=== PATIENT | female | born 1990 | race Caucasian/White ===

== ENCOUNTER 2020-11-18 14:04 | Emergency (ER) | payer OTHER, SELFPAY ==
[2020-11-18 14:34] VITALS: BP 141/81; PULSE 97; RESP 18; TEMP 36.4; O2SAT 98; BMI 40.7
--- NOTE | 2020-11-18 14:37 | XR_ITS ---
EXAMINATION: XR ELBOW, RIGHT CLINICAL INFORMATION: Dog bite. Painful range of motion. COMPARISON: None TECHNIQUE: AP, lateral, and oblique views of the right elbow. FINDINGS: The bones and soft tissues are normal. No fracture or joint effusion. Alignment is anatomic. Joint spaces are maintained. No soft tissue gas or radiopaque foreign body seen. XR/XR elbow RT min 3V IMPRESSION: Unremarkable right elbow exam.
--- NOTE | 2020-11-18 14:39 | ED.ANIMALBIT ---
HPI - Animal Bite General Chief Complaint: Animal Bite Stated Complaint: elbow lac Time Seen by Provider: 11/18/20 14:14 Source: patient Mode of arrival: ambulatory Limitations: no limitations History of Present Illness HPI narrative: 30 y/o female with history of obesity, asthma, old hip fracture currently on predispose who presents to the ED 18 hours after a Rottwe[place] dog bit her right elbow. She states she felt immediate pain and bleeding. She was able to stop the bleeding so did not come to the ER for evaluation. Today the bleeding recurred and she had worsening elbow pain and difficulty lifting due to the pain. Last tetanus 2007. No fever, chills, drainage of pus. Can move her elbow but it hurt. Dog is up to date on his shots, it is her friend's dog. complaint: animal bite Onset (ago): day(s) (1) Animal: dog Description of animal: household pet Mechanism: bite Location - Extremities: right: elbow (posterior ) Pain description: sharp and intermittent Severity scale (1-10): 6 Context: playing with animal Associated symptoms: bleeding Treatments prior to arrival: wound dressing(s) Related Data Patient tetanus UTD: No Previous Rx's Medication Instructions Recorded amoxicillin-pot clavulanate 1 tab PO Q12H #20 tab 11/18/20 [Augmentin] Allergies Allergy/AdvReac Type Severity Reaction Status Date / Time animal dander [ANIMAL DANDER] Allergy Unknown ITCHY Unverified 07/18/20 18:09 EYES, RUNNY NOSE cat pelt standardized Allergy Unknown Dry Eye Verified 11/18/20 14:33 allergenic ex Dog Fennel Allergy Unknown Shortness Uncoded 11/18/20 14:33 of Breath DUST Allergy Unknown UNKNOWN Uncoded 07/18/20 18:09 Dust Mite Mixed Allergen Ext Allergy Unknown Shortness Uncoded 11/18/20 14:33 of Breath Review of Systems Review of Systems: Constitutional: No Fever, No Chills ENT/Mouth: No Swallowing Difficulty Cardiovascular: No Chest Pain, No SOB Respiratory: No Cough, No Sputum, No Wheezing, No dyspnea Gastrointestinal: No Nausea, No Vomiting, No Diarrhea, No abdominal Pain Genitourinary: No Dysuria, No Urinary Frequency, No Hematuria Musculoskeletal: + joint pain, + Myalgias Skin: + Skin Lesions, + rash Neuro: No Weakness, No Numbness, No Dizziness, No Headache Heme/Lymph: + Bruising, No Lymphadenopathy PMFSH Past Medical History Medical History (Updated 11/18/20 @ 14:47 by FÁTIMA Green) Asthma Depression Social History Social History Advance Directives: No Advance Directives Information Provided: No Physical Exam Vital Signs: Vital Signs: Last Vital Signs Temp 97.6 F 11/18/20 14:34 Pulse 97 11/18/20 14:34 Resp 18 11/18/20 14:34 BP 141/81 H 11/18/20 14:34 Pulse Ox 98 11/18/20 14:34 Body Mass Index 40.7 Appearance: Alert. Oriented X3. No acute distress. HEENT: normal inspection CVS: Normal heart rate and rhythm. Pulses normal. Respiratory: No respiratory distress. Skin: Skin warm and dry. Normal skin color. Normal skin turgor. No rashes. Extremities: right elbow with 2cm wound with small flap, no active bleeding. ecchymosis surrouning the wound. no pus draining. no surrounding erythema. full elbow ROM with pain upon full flexion Neuro: Oriented X 3. No motor deficit. No sensory deficit. Course Course Course Narrative: 30 y/o female presenting with delayed presentation of dog bite. No role for suturing at this time. Wound has been cleaned and sterile dressing applied. Will get XR given pain on ROM and size of dog, low suspicion for bony involvement. Will give tetanus and prescribe abx. Reevaluation(s) Reevaluation #1: XR unremarkable. Stable for discharge. Discharge Plan Discharge Clinical Impression: Dog bite Qualifiers: Encounter type: initial encounter Qualified Code(s): W54.0XXA - Bitten by dog, initial encounter Patient Disposition: Home, Self-Care Instructions: Animal Bite (ED) Additional Instructions: Your x-ray today was unremarkable. No indication for stitches at this time. Keep wound with clean and dry. You may wash briefly with soap and water then pat dry. Use Neosporin or another triple antibiotic ointment 2-3 times per day. Change the dressing daily. Take the antibiotics as prescribed. Take Motrin and/or Tylenol as needed for pain. You were given a tetanus shot today. It is good for 5 years. Follow up with your doctor as schedule. Prescriptions: New amoxicillin-pot clavulanate [Augmentin] 875-125 mg tablet 1 tab PO Q12H Qty: 20 RF: 0 Stand Alone Forms: Work/School Release
== END 2020-11-18 15:10 | disposition home or self-care (01) ==
LOC: HO.ED 14:48
PROVIDERS: Emergency Provider Emergency Medicine; PCP Internal Medicine
DX: S51.051A Open bite, right elbow, initial encounter (principal); W54.0XXA Bitten by dog, initial encounter; Y93.9 Activity, unspecified; Y92.019 Unspecified place in single-family (private) house as the place of occurrence of the external cause; Y99.9 Unspecified external cause status
CPT/HCPCS: 73080; 90471; 90715; 99283; 99284

== ENCOUNTER 2022-10-22 12:44 | Outpatient (REF) | payer OTHER, SELFPAY ==
--- NOTE | 2022-10-22 14:53 | MHC.AU.HA1 ---
Hearing Aid Evaluation Date of Visit: 10/22/22 Historical Information: Description of Hearing: Right- Normal hearing, Left- Profound hearing loss Summary: Patient received medical clearance for a CROS system from ENT, Dr. Chavez. 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 She has never worn a hearing aid or CROS system, but is very interested in trying a CROS. She reports that it is frustrating to always have to turn her better ear towards people who are talking, and she still often misses what people are saying if they are on her left side. Options were discussed. She would like rechargeable for ease of use. Hearing Aid Prescription: Based on the individual?s shared listening needs, communication environments, dexterity, desire for connectivity, and personal preferences, the following prescription for amplification has been made: Right ear: Make, Model, Color: Oticon More 2 miniRITE R Battery Size: Rechargeable Inside Technical Sales Representative/Slim Tube: Size 2- 60 gain Type of Earmold/Dome/CShell/SlimTip: Open Dome Left ear: Left ear prescription to be same as Right Hearing Aid above: David Model, Color: Oticon CROS PX miniRITE R Battery Size: Rechargeable Inside Technical Sales Representative/Slim Tube: Size 2 Type of Earmold/Dome/CShell/SlimTip: Open Dome Action Taken/Action Needed: Hearing Instrument Fitting to be scheduled when materials arrive Primary Diagnosis: H90.42 SNHL Unilateral Left Side, W/Unrestricted Contralateral Hearing Signature: Provider: Afshan Carter, [facility]
== END 2022-10-22 12:45 | disposition home or self-care (01) ==
LOC: HO.HAP 12:44
PROVIDERS: Visit Provider Internal Medicine
DX: Z46.1 Encounter for fitting and adjustment of hearing aid (principal); H90.42 Sensorineural hearing loss, unilateral, left ear, with unrestricted hearing on the contralateral side
CPT/HCPCS: 92591

== ENCOUNTER 2022-11-20 15:13 | Outpatient (REF) | payer OTHER, SELFPAY | END 2022-11-20 15:14 | disposition home or self-care (01) | LOC: HO.HAP 15:13 | PROVIDERS: Visit Provider Internal Medicine | DX: Z13.89 Encounter for screening for other disorder (principal) ==

== ENCOUNTER 2022-11-27 09:59 | Outpatient (REF) | payer OTHER, SELFPAY ==
--- NOTE | 2022-11-27 09:56 | MHC.AU.NMH ---
Hearing Aid Delivery Receipt: Third Libertarian Payor [facility] type [facility] Other: Date of Fitting: End of Adjustment Period: 30 days from date of fitting Filter Washer: Right Ear: Left Ear: Make, Model, Serial Number and Color: Oticon More 2 miniRITE R Prisca Black Serial #[id number] Make, Model, Serial Number and Color: Oticon CROS PX miniRITE R Prisca Black Serial #[id number] Director Employee Safety And Health/Slim Tube: Size 2- 60 gain Director Employee Safety And Health/Slim Tube: Size 2 Earmold/Dome/CShell/SlimTip: Open Dome Earmold/Dome/CShell/SlimTip: Open Dome Type of Wax Guard: Type of Wax Guard: Battery Size: Rechargeable Battery Size: Rechargeable President Repair Warranty: 11/21/2025 President Repair Warranty: 11/21/2025 President Loss and Damage Warranty: 11/21/2025 President Loss and Damage Warranty: 11/21/2025 [facility] Service Agreement ends one year from date of fitting on? [facility] Service Agreement ends one year from date of fitting on Accessories/Assistive Technology: Following the expiration of [facility]?s service agreement, charges for items and services listed above are billed at the usual and customary rate. *If coverage by third libertarian payor exists, medically necessary modifications, repairs, etc. will be billed to said third libertarian payor. If there is no third libertarian payor eligibility beyond the service agreement or fertilizing machine operator warranty periods, items will be billed per usual and customary rates and payment is expected at the time of service. Hearing aids that are lost or damaged beyond repair cannot be returned for credit, and the [facility] nurse is liable for the full purchase sofia. My signature below acknowledges that I have read and understand this hearing aid contract and have received the goods and services out lined above. ?Date? Home Address: ? PATIENT STICKER ? This hearing aid will not restore normal hearing nor will it prevent further hearing loss. The sale of a hearing aid is restricted to those individuals who have obtained a medical evaluation from a licensed physician or user interface artist. A fully informed adult whose quaker or personal beliefs preclude consultation with a physician may waive the requirement of a medical evaluation. The exercise of such a waiver is not in your best health interest and its use is strongly discouraged. It is also required that a person under the age of eighteen years obtain an evaluation by an life sciences manager in addition to the medical evaluation before a hearing aid can be sold to such person. Alonso Adorno,Title XV,Chapter 93:74
== END 2022-11-27 10:00 | disposition home or self-care (01) ==
LOC: HO.HAP 09:59
PROVIDERS: Visit Provider Internal Medicine
DX: Z46.1 Encounter for fitting and adjustment of hearing aid (principal); H90.42 Sensorineural hearing loss, unilateral, left ear, with unrestricted hearing on the contralateral side
CPT/HCPCS: V5011; V5020; V5221; V5240

== ENCOUNTER 2023-09-03 22:49 | Emergency (ER) | payer OTHER, SELFPAY ==
--- NOTE | ~2023-09-03 | XR_ITS ---
X-RAY RIGHT ANKLE AND RIGHT FOOT CLINICAL HISTORY: Fall. COMPARISON: No relevant prior studies are available for comparison. TECHNIQUE: 2 views of the right ankle and 3 views of the right foot. FINDINGS: Right ankle: Soft tissue swelling that is more prominent adjacent to the lateral malleolus. No osseous fractures or malalignment. No unexpected radiopaque foreign bodies. Right foot: No acute fracture or malalignment. Nonspecific diffuse soft tissue swelling. No unexpected radiopaque foreign bodies. XR/XR foot RT 2V IMPRESSION: Diffuse soft tissue swelling more noticeable adjacent to the lateral malleolus. No acute fracture or subluxation.
--- NOTE | ~2023-09-03 | XR_ITS ---
X-RAY RIGHT ANKLE AND RIGHT FOOT CLINICAL HISTORY: Fall. COMPARISON: No relevant prior studies are available for comparison. TECHNIQUE: 2 views of the right ankle and 3 views of the right foot. FINDINGS: Right ankle: Soft tissue swelling that is more prominent adjacent to the lateral malleolus. No osseous fractures or malalignment. No unexpected radiopaque foreign bodies. Right foot: No acute fracture or malalignment. Nonspecific diffuse soft tissue swelling. No unexpected radiopaque foreign bodies. XR/XR ankle RT 2V IMPRESSION: Diffuse soft tissue swelling more noticeable adjacent to the lateral malleolus. No acute fracture or subluxation.
[2023-09-03 22:53] VITALS: BP 112/96; PULSE 97; RESP 18; TEMP 37.1; O2SAT 97; BMI 46.6
--- NOTE | 2023-09-04 00:36 | ED_ITS ---
HPI - General Adult General Chief complaint: Fall Stated complaint: ankle swollen w/ no feeling Time Seen by Provider: 09/04/23 00:36 Source: patient Mode of arrival: ambulatory Limitations: no limitations History of Present Illness HPI narrative: Patient is a 33 year old assigned female at with no reported medical history presenting to the emergency department today with right ankle pain. Patient states that she fell down approximately 3 or 4 steps and now her right ankle hurts. Patient denies any loss of consciousness, dizziness, lightheadedness, abdominal pain, nausea, vomiting, fever, chills, blurry vision, double vision, loss of vision, chest pain, difficulty breathing, shortness of breath, back pain, night sweats, pain with urination, increased urinary frequency, increased urinary urgency, blood in her urine or stool, syncope or a near syncopal episode, bowel incontinence, bladder incontinence, bowel retention, bladder retention, or any other complaints at this time. Onset (ago): minute(s) Location: right and lower extremity Radiation: non-radiation Severity: mild Severity scale (1-10): 4 Quality: aching and dull Pain Consistency: constant Relieving factors: none Exacerbating factors: none Associated symptoms: denies other symptoms Treatments prior to arrival: none Related Data Previous Rx's Medication Instructions Recorded amoxicillin 875 mg-potassium 1 tab PO Q12H #20 tabs 11/18/20 clavulanate 125 mg tablet (Augmentin) Allergies Allergy/AdvReac Type Severity Reaction Status Date / Time animal dander [ANIMAL DANDER] Allergy Unknown ITCHY Unverified 07/18/20 18:09 EYES, RUNNY NOSE cat pelt standardized Allergy Unknown Dry Eye Verified 11/18/20 14:33 allergenic ex Dog Fennel Allergy Unknown Shortness Uncoded 11/18/20 14:33 of Breath DUST Allergy Unknown UNKNOWN Uncoded 07/18/20 18:09 Dust Mite Mixed Allergen Ext Allergy Unknown Shortness Uncoded 11/18/20 14:33 of Breath Review of Systems Constitutional: Constitutional: Reports no additional constitutional complaints, Denies chills, Denies fever(s) and Denies night sweats Eyes: Eyes: Reports no additional eye complaints, Denies blurry vision, Denies change in vision, Denies diplopia, Denies eye discharge, Denies loss of vision and Denies eye pain ENT: Denies dizziness Cardiovascular: Cardiovascular: Reports no additional cardiovascular complaints, Denies chest pain, Denies lightheadedness, Denies Loss of Consciousness and Denies dyspnea Respiratory: Respiratory: Reports no additional respiratory complaints and Den ies dyspnea Gastrointestinal: Gastrointestinal: Reports no additional gastrointestinal complaints, Denies abdominal pain, Denies melena, Denies hematochezia, Denies change in bowel habits and Denies change in stool character Genitourinary: Genitourinary: Denies hematuria, Denies urinary frequency, Denies dysuria, Denies urinary incontinence, Denies urinary hesitancy and Denies urinary urgency Musculoskeletal: Musculoskeletal: Reports no additional musculoskeletal complaints, Denies numbness and Denies tingling Comments: right ankle pain Neurologic: Denies dizziness, Denies loss of vision, Denies numbness and Denies tingling Psychiatric: Psychiatric: Reports no additional psychiatric complaints Endocrine: Endocrine: Reports no additional endocrine complaints Hematologic/Lymphatic: Hematologic/Lymphatic: Reports no additional hematologic/lymphatic complaints Allergic/Immunologic: Allergic/Immunologic: Reports no additional al lergic/immunologic complaints PMFSH Past Medical History Attestation statement: The following information was validated with the patient. Source: old records reviewed and nursing notes reviewed Medical History Depression Asthma Social History Social History Smoked in Last 30 Days: Yes Use of substances other than those prescribed or required for medical reasons: No Advance Directives: No Advance Directives Information Provided: Yes Patient : No Physical Exam ED Vital Signs: Vital Signs - 24 hr 09/03/23 22:53 Temperature 98.7 F Pulse Rate 97 Respiratory Rate 18 Blood Pressure 112/96 H Pulse Oximetry 97 Oxygen Delivery Method Room Air BMI result Body Mass Index 46.6 Const General: cooperative, no acute distress, alert and awake Nutritional Appearance: well nourished Orientation/consciousness: patient oriented x3 Limitations: no limitations HENMT Head: Yes normal to inspection and Yes atraumatic Ears: hearing grossly normal bilaterally and external ears normal General nose exam: Normal external nose present, no nasal discharge noted and no epistaxis Face and sinus: Yes normal facial exam, No abrasion and No laceration Mouth: Normal oral and palatal mucosa present, no drooling and no muffled voice Eyes General: appearance normal, both eyes and all related structures Periorbital: periorbital findings normal Eyelids: Yes eyelids normal Conjunctivae: conjunctivae normal Pupils: Equal, round and reactive pupils present EOM: EOMs intact bilaterally Neck Neck: Yes normal visual inspection, Yes full ROM and Yes no lymphadenopathy Chest Chest palpation & inspection: normal inspection of the chest Resp Effort & Inspection: normal respiratory effort and able to speak in complete sentences GI Inspection: Yes normal to inspection Neuro General: patient oriented x3 and moves all extremities Cranial nerves: Yes Equal, round and reactive pupils present Cognition (Neuro): normal cognition Motor exam (neuro): 5/5 motor strength present throughout Sensory Exam: Normal double simultaneous stimulation for sensation Coordination: [id number] test normal Extrem Other: minimal swelling to the right ankle General: Yes full ROM and Yes capillary refill normal Psych Appearance: grossly normal Mental Status: mental status grossly normal Affect: normal affect Attitude: cooperative Thought process: Normal thought process present Thought content: Normal thought content present Insight: Good insight present (Psych) Procedures Orthopedic Splinting/Casting Injury #1: Side: right Lower Extremity Injury Location: ankle Lower Extremity Immobilizer: boot orthosis Other Orthopedic Equipment: crutches Medical Decision Making Medical Decision Making MDM Narrative: Patient is a 33 year old assigned female at with no reported medical history presenting to the emergency department today with right ankle pain. Patient's physical exam showed minimal right ankle swelling. Patient's right foot and ankle x-rays showed no acute process. I explained my physical exam findings as well as all test results to the patient. I answered all questions asked by the patient. Patient's right foot was placed in a waling boot and given crutches with crutch instructions. Patient's PMS was in tact prior to and after boot placement. I stressed the importance of the patient taking her medication as prescribed. I stressed the importance of the patient following up with her primary care provider. I stressed the importance of the patient returning to the emergency department immediately if her symptoms were to worsen or if she were to develop any dizziness, shortness of breath, difficulty breathing, chest pain, blurry vision, loss of vision, nausea, vomiting, abdominal pain, fever, chills, back pain, or any other complaints. Patient verbalized agreement and understanding with this treatment plan and discharge. Differential Diagnosis Differential Diagnoses: The differential diagnosis associated with the presentation includes Right ankle fracture Right foot fracture Right ankle sprain Right foot sprain Independent Interpretation I performed an independent interpretation of an: Plain X-Ray Interpretation: My interpretation is in agreement with the radiologist's impression of these imaging studies. X-RAY RIGHT ANKLE AND RIGHT FOOT CLINICAL HISTORY: Fall. COMPARISON: No relevant prior studies are available for comparison. TECHNIQUE: 2 views of the right ankle and 3 views of the right foot. FINDINGS: Right ankle: Soft tissue swelling that is more prominent adjacent to the lateral malleolus. No osseous fractures or malalignment. No unexpected radiopaque foreign bodies. Right foot: No acute fracture or malalignment. Nonspecific diffuse soft tissue swelling. No unexpected radiopaque foreign bodies. XR/XR foot RT 2V IMPRESSION: Diffuse soft tissue swelling more noticeable adjacent to the lateral malleolus. No acute fracture or subluxation. Dictated By: Carlie Gill Signed By: Electronically signed by Carlie Gill 09/03/23 [id number] Radiology Impression Discussion of test interpretation with radiology: I have reviewed the radiologist's reading. Discharge Plan Discharge Clinical Impression: Ankle sprain Patient Disposition: Home, Self-Care Instructions: Ankle Sprain (DC) Additional Instructions: Follow up with your primary care provider. Return to the emergency department immediately if your symptoms worsen or if you develop any dizziness, shortness of breath, difficulty breathing, chest pain, blurry vision, loss of vision, nausea, vomiting, abdominal pain, fever, chills, back pain, or any other complaints. Prescriptions: No Action amoxicillin-pot clavulanate [Augmentin] 875-125 mg tablet 1 tab PO Q12H Qty: 20 0RF Referrals: Belinda Do MD [Primary Care Provider] - Stand Alone Forms: Work/School Release Interventions: ED Discharge Assessment Last Done: 09/04/23 01:21 Discharge Date/Time: 09/04/23 01:22 Print Language: Chadian
--- NOTE | 2023-09-04 00:41 | PC.NURSE ---
Addendum entered by Ofe Raman 09/04/23 01:00: pedal pulse palpable, pt able wiggle toes, but has very limited range of motion. Original Note: Pt reporting 09/10 right ankle pain, after tripping on flip flop putting out her cigarette. Swelling the size baseball on right side of foot, with some bruising noted. XR of foot has been taken. Pt aware of plan of care.
== END 2023-09-04 01:22 | disposition home or self-care (01) ==
LOC: HO.ED 09-04 00:45
PROVIDERS: Emergency Provider Emergency Medicine; PCP Internal Medicine
DX: S93.401A Sprain of unspecified ligament of right ankle, initial encounter (principal); W10.9XXA Fall (on) (from) unspecified stairs and steps, initial encounter; Y93.9 Activity, unspecified; Y92.9 Unspecified place or not applicable; Y99.9 Unspecified external cause status
CPT/HCPCS: 73600; 73620; 99283; 99284

== ENCOUNTER 2024-08-09 15:55 | Outpatient (REF) | payer OTHER, SELFPAY ==
--- NOTE | 2024-08-09 16:31 | MHC.AU.HA3 ---
Hearing Instrument Follow-Up- Binaural Date of Visit: 08/09/24 Right Ear: Make, Model, Color, Serial Number: Oticon More 2 miniRITE R Prisca Black Serial #[id number] Dandy Operator Repair Warranty: 11/21/2025 Dandy Operator Loss and Damage Warranty: 11/21/2025 [facility] Service Plan: 11/27/2023 Battery Size: Rechargeable Inspector Outside Production/Slim Tube: Size 2- 60 gain Earmold/Dome/CShell/SlimTip:Open Dome Type of Wax Guard: Mini Fit Pro Wax - Black handle [place] [facility] [place] of [place]itt[place]22 Left Ear: Make, Model, Color, Serial Number: Oticon CROS PX miniRITE R Prisca Black Serial #[id number] Dandy Operator Repair Warranty: 11/21/2025 Dandy Operator Loss and Damage Warranty: 11/21/2025 [facility] Service Plan: 11/27/2023 Battery Size: Rechargeable Inspector Outside Production/Slim Tube: Size 2 Earmold/Dome/CShell/SlimTip: Open Dome Type of Wax Guard: Mini Fit Pro Wax - Black handle [place] [facility] [place] of Fitt[place]22 Follow-Up Summary: Blake reports that she isn't hearing sound from her hearing aid. Found hearing aid wax guard clogged, mics clogged on CROS. Cleaned all. Replaced domes and wax guards. Listening check positive. Improvement reported. Pt reports streaming problems as well- this has been resolved by cleaning and sound now coming from the aid in general. Recommendations: Recommendations: Hearing instrument follow-up or maintenance as needed. Diagnosis Code(s): Primary Diagnosis: H90.42 SNHL Unilateral Left Side, W/Unrestricted Contralateral Hearing Signature: Provider: Afshan Soto, CCC-A
== END 2024-08-09 15:56 | disposition home or self-care (01) ==
LOC: HO.HAP 15:55
PROVIDERS: Visit Provider Internal Medicine
DX: Z46.1 Encounter for fitting and adjustment of hearing aid (principal); H90.42 Sensorineural hearing loss, unilateral, left ear, with unrestricted hearing on the contralateral side
CPT/HCPCS: 92593; 99499